=== PATIENT | female | born 1945 | race Hispanic/Latino ===

== ENCOUNTER 2018-01-20 06:03 | Observation (INO) | payer MEDICARE ==
--- NOTE | 2018-01-19 14:05 | Diagnostic Imaging Report ---
ADDENDUM #1 Preoperative, anesthesia protocol, knee surgery, left knee Signed by: Dr. Ralph Connor MD on 01/26/2018 1:10 PM ORIGINAL REPORT EXAM: XR CHEST 2 VIEWS DATE: 01/19/2018 1:30 PM INDICATION: Preoperative. Knee surgery. COMPARISON: None FINDINGS: Lines and Tubes: None Heart and Mediastinum: No acute cardiomediastinal findings. Mild aortic arch calcifications. Lungs and Pleura: No significant pleural effusion, pneumothorax, or focal consolidation. Bones and Soft Tissues: No acute findings. IMPRESSION: 1. No acute cardiopulmonary findings. Signed by: Dr. Ralph Connor MD on 01/19/2018 2:02 PM
[2018-01-19 14:17] LABS: BASOPHILS # (AUTO) 0.1 (0.0-0.1); BASOPHILS % 0.9 % (0.0-1.0); EOSINOPHILS # (AUTO) 0.1 (0.0-0.4); EOSINOPHILS % 1.9 % (0.0-6.0); HEMATOCRIT 36.1 % (34.2-44.1); LYMPHOCYTES # (AUTO) 1.9 (1.0-3.2); MEAN CORPUSCULAR HEMOGLOBIN 30.6 pg (28-32); MEAN CORPUSCULAR HGB CONC 33.2 g/dL (31-35); MEAN CORPUSCULAR VOLUME 92.1 fL (81-99); MONOCYTES # (AUTO) 0.4 (0.2-0.8); MONOCYTES % 6.3 % (4.4-11.3); NEUTROPHILS # (AUTO) 4.3 (2.1-6.9); NEUTROPHILS % 62.6 % (38.7-80.0); PLATELET COUNT 270 x10e3/uL (140-360); RED BLOOD COUNT 3.92 x10e6/uL (3.6-5.1); RED CELL DISTRIBUTION WIDTH 13.3 % (11.7-14.4)
[~2018-01-20] VITALS: Ht 154.9 cm; Wt 60.4 kg
[~2018-01-20 06:03] MED LIST: AMLODIPINE BESY10 MG PO; CARVEDILOL6.25 MG PO; FENOFIBRATE134 MG PO; MELOXICAM7.5 MG PO; PAROXETINE HCL10 MG PO; TRAZODONE HCL150 MG PO; ULTRAM 50MG50 MG PO
--- OUTSIDE RECORDS SUMMARY | 2018-01-20 06:06 | XMS REPORT ---
Author Author [facility] Address Unknown Phone Unavailable Care Team Providers Care Manager Secondary Name Role Phone ANJELICA HODGSON Unavailable Unavailable Problems This patient has no known problems. Allergies, Adverse Reactions, Alerts This patient has no known allergies or adverse reactions. Medications This patient has no known medications. Results Test Description Test Time Test Comments Text Results Atomic Results Result Comments CHEST 2 VIEWS 2018-01-19 14:00:00 [place] [address] Patient Name: ROWENA LOVELL MR #: [id number] : 1945 Age/Sex: 72/F Req #: [id number] Adm Physician: Ordered by: ANJELICA HODGSON MD Report #: [id number] Location: OR Room/Bed: Procedure: [id number] DX/CHEST 2 VIEWS Exam Date: 01/19/18 Exam Time: 1350 REPORT STATUS: Signed EXAM: XR CHEST 2 VIEWS DATE: 01/19/2018 1:30 PM IND ICATION: Preoperative. Knee surgery. COMPARISON: None FINDINGS: Lines and Tubes: None Heart and Mediastinum: No acute cardiomediastinal findings. Mild aortic arch calcifications. Lungs and Pleura: No significant pleural effusion, pneumothorax, or focal consolidation. Bones and Soft Tissues: No acute findings. IMPRESSION: 1. No acute cardiopulmonary findings. Signed by: Dr. Ralph Gotti MD on 01/19/2018 2:02 PM Dictated By: RALPH GOTTI MD 140 Transcribed By: YOHAN on 01/19/181401 COPY TO: ANJELICA HODGSON MD
[2018-01-20] MEDS ORDERED: DEXAMETHASONE SOD PHOS 10 MG/1 ML VIAL ONE (06:11)
[2018-01-20] MEDS ORDERED: CELECOXIB 200 MG CAP ONE (06:11)
[2018-01-20] MEDS ORDERED: GABAPENTIN 300 MG CAP ONE (06:11)
[2018-01-20] MEDS ORDERED: CEFAZOLIN SOD 2 GM/D5W 50ML 50 ML IV ONE (06:12)
[2018-01-20] MEDS ORDERED: BACITRACIN 50,000 UNIT VIAL ONE (06:20)
[2018-01-20] MEDS ORDERED: TRANEXAMIC ACID 1,000 MG/10 ML ML ONE (06:20)
[2018-01-20] MEDS ORDERED: ROPINIROLE HCL1 MG PO (06:52)
[2018-01-20] MEDS ORDERED: ROPIVACAINE 246.25 MG, EPINEPHRINE HCL 1:1000 0.5 MG, CLONIDINE HCL 0.08 MG, KETOROLAC ... INJ ONE ×5 (07:30)
[2018-01-20] MEDS ORDERED: HYDROCODONE/APAP 5MG-325MG TAB PO PRN (09:15)
[2018-01-20] MEDS ORDERED: ACETAMINOPHEN 650 MG SUPP PR PRN (09:15)
[2018-01-20] MEDS ORDERED: KETOROLAC TROMETHAMINE 30 MG/ML VIAL IV PRN (09:15)
[2018-01-20] MEDS ORDERED: ONDANSETRON HCL INJ 2 MG/ML VIAL IV PRN (09:15)
[2018-01-20] MEDS ORDERED: PROMETHAZINE HCL (IM) 25 MG/ML VIAL INJ PRN (09:15)
[2018-01-20] MEDS ORDERED: DOCUSATE SODIUM 100 MG CAP PO PRN (09:15)
[2018-01-20] MEDS ORDERED: DIPHENHYDRAMINE HCL INJ 50 MG/ML VIAL IM/IV PRN (09:15)
[2018-01-20] MEDS ORDERED: ZOLPIDEM TARTRATE 5 MG TAB PO PRN (09:15)
--- NOTE | 2018-01-20 09:55 | Diagnostic Imaging Report ---
PROCEDURE: X-RAY LEFT KNEE, ONE OR TWO VIEWS COMPARISON: None. INDICATIONS:S/P KNEE REPLACEMENT FINDINGS: Status post left total knee arthroplasty and patellar resurfacing with surrounding soft tissue swelling, air and virgen consistent with recent surgery. Hardware appears intact. No evidence of fracture or malalignment. CONCLUSION: Status post left total knee arthroplasty with expected post-operative findings. Dictated by: KEN CONNELLY M.D. on 01/20/2018 at 10:04 Electronically approved by: KEN CONNELLY M.D. on 01/20/2018 at 10:04
[2018-01-20] MEDS: ACETAMINOPHEN 1000 MG/100 ML IV SCH ×5 (12:27→19:28)
[2018-01-20] MEDS: SODIUM CHLORIDE 0.9% 1000ML 1,000 ML IV SCH ×2 (12:27→19:30)
[2018-01-20 12:40] VITALS: BP 142/65
[2018-01-20] MEDS: HYDROCODONE/APAP 7.5MG-325MG 1 EA TAB PO PRN (13:28)
[2018-01-20] MEDS ORDERED: CEFAZOLIN SOD 1 GM/D5W 50ML 50 ML IV SCH (14:00)
[2018-01-20 14:17] VITALS: BP 142/65
--- NOTE | 2018-01-20 14:33 | Operative Report ---
DATE OF PROCEDURE: January 20, 2018 PREOPERATIVE DIAGNOSIS: Osteoarthritis, left knee. POSTOPERATIVE DIAGNOSIS: Osteoarthritis, left knee. PROCEDURE: Left total knee arthroplasty. INDICATIONS: The patient is a 72-year-old lady with end-stage arthritis of her left knee. She has failed conservative management and would like to proceed with left total knee replacement. The risks and benefits of the procedure have been discussed. She states she understands and wishes to proceed. DESCRIPTION OF PROCEDURE: The patient was brought to the operating room and placed under general anesthetic. She received prophylactic antibiotics, regional block, and tranexamic acid in the holding area. Her left lower extremity was prepped and draped in a sterile manner. A preoperative timeout was performed. The extremity was exsanguinated and a proximal tourniquet was inflated to 300 mmHg. An anterior approach with a medial parapatellar arthrotomy was performed. Clear synovial fluid was removed from the joint. Soft tissue releases were performed to bring the knee up into flexion with the patella everted. The remnant of the cruciate ligaments was sacrificed. Meniscal remnants and marginal osteophytes were removed. A Watkins and Nephew posterior stabilized LEGION knee system was used throughout the case. An extramedullary cutting guide was used to resect the proximal tibia. The tibia was noted to be a size 2. The central fin punch was impacted. Attention was then directed towards the distal femur. An intramedullary cutting guide was used to resect the distal femur in 6 degrees of valgus and rotation referencing off of a combination of landmarks including Whitesides line, the epicondylar axis, and the posterior condyles. The femoral component was a size #4. The anterior and posterior cuts were made. Due to the small size of the distal femur, I did not elect to make a notch cut and used a posted tibial insert. We elected to use an ultracongruent tibial insert. Trial reductions were performed. An 11 mm ultracongruent tibial insert provided appropriate soft tissue balancing in both flexion and extension. The patella was resurfaced with a 29 mm x 9 mm patellar button. The thickness was checked before and after and was right at 22 mm. Patellar tracking was concentric. The trial implants were then all removed. A 100 mL premixed pericapsular injection was placed into the surrounding soft tissue. The knee was thoroughly irrigated with a shower-tip pulsatile lavage. The components were cemented into place using a single mix of Palacos cement pre-loaded with antibiotics. Care was taken to remove all extravasated cement. The wound was further irrigated while the cement cured. The arthrotomy was then closed with interrupted #1 Ethibond. The knee was put through flexion and extension to ensure a secure closure. The skin was closed with subcuticular Vicryl and virgen. A sterile Mastisol bandage was applied. The patient was extubated and transported to the recovery room in stable condition. Blood loss was minimal. All needle and sponge counts were correct. Job#: [id number] VAS
[2018-01-20] MEDS: CEFAZOLIN SOD 1 GM VIAL IV SCH ×2 (14:41→21:26)
[2018-01-20 16:31] VITALS: BP 142/65
[2018-01-20 16:45] VITALS: BP 128/63
[2018-01-20] MEDS ORDERED: CELECOXIB 100 MG CAP PO SCH (17:00)
[2018-01-20] MEDS: ASPIRIN 325 MG TAB PO SCH (17:13)
[2018-01-20] MEDS: CELECOXIB 200 MG CAP PO SCH (17:13)
[2018-01-20] MEDS ORDERED: ONDANSETRON HCL INJ 2 MG/ML VIAL ONE (18:06)
[2018-01-20] MEDS ORDERED: ACETAMINOPHEN 1000 MG/100 ML IV ONE (18:06)
[2018-01-20] MEDS ORDERED: LIDOCAINE HCL 2% LOCAL INJ 5 ML SDV VIAL INJ ONE (18:06)
[2018-01-20] MEDS ORDERED: PROPOFOL IV EMULSION 10 MG/ML 20 ML VIAL ONE (18:06)
[2018-01-20] MEDS ORDERED: DEXAMETHASONE SOD PHOS INJ 4 MG/ML VIAL ONE (18:06)
[2018-01-20] MEDS ORDERED: SEVOFLURANE INHAL SOLN 250 ML PEN BTL ONE (18:06)
[2018-01-20] MEDS ORDERED: MIDAZOLAM HCL 2 MG/2 ML VIAL ONE (19:06)
[2018-01-20] MEDS ORDERED: FENTANYL CITRATE/PF 100MCG/2 ML INJ ONE (19:06)
[2018-01-20] MEDS ORDERED: LIDOCAINE 2% /EPINEPHRINE 20 ML SDV INJ ONE (19:13)
[2018-01-20] MEDS ORDERED: ROPIVACAINE 0.5% 5 MG/ML 30 ML SDV ONE (19:13)
[2018-01-20 20:00] VITALS: BP 143/93
[2018-01-20 22:40] VITALS: BP 143/93
[2018-01-21] VITALS: BP 147/71
[2018-01-21] MEDS: HYDROCODONE/APAP 7.5MG-325MG 1 EA TAB PO PRN (03:54)
[2018-01-21 04:00] VITALS: BP 138/62
[2018-01-21] MEDS: SODIUM CHLORIDE 0.9% 1000ML 1,000 ML IV SCH (05:08)
[2018-01-21] MEDS: CEFAZOLIN SOD 1 GM VIAL IV SCH (05:51)
[2018-01-21] MEDS: ACETAMINOPHEN 1000 MG/100 ML IV SCH (05:51)
[2018-01-21 06:21] LABS: HEMATOCRIT 27.6 % (34.2-44.1); HEMOGLOBIN 9.3 g/dL (12.0-16.0)
[2018-01-21 08:07] VITALS: BP 136/61
[2018-01-21] MEDS: ASPIRIN 325 MG TAB PO SCH (08:09)
[2018-01-21] MEDS: CELECOXIB 200 MG CAP PO SCH (08:09)
[2018-01-21 08:40] VITALS: BP 136/61
[2018-01-21] MEDS ORDERED: ASPIRIN325 MG PO (08:53)
[2018-01-21] MEDS ORDERED: ACETAMINOPHEN 1000 MG/100 ML IV PRN (09:15)
[2018-01-21] MEDS ORDERED: NORCO 5-325 TA1 EACH PO (09:37)
[2018-01-21 12:07] VITALS: BP 150/65
--- NOTE | 2018-03-09 14:50 | Discharge Summary ---
CHIEF COMPLAINT: Left knee pain. HISTORY OF PRESENT ILLNESS: This patient is a 72-year-old female who is well known to us who complains of left knee pain for roughly 3 years. She has seen us multiple times over the last few years and had numerous cortisone injections as well as viscosupplementation. The patient now presents wanting to proceed with a left total knee replacement. The risks and benefits were explained. The patient states she understands and wishes to proceed. HOSPITAL COURSE: The patient underwent a left total knee replacement without complications. She was then transferred to the recovery room in the floor in stable condition. She remained stable throughout her hospital stay. She progressed nicely with physical therapy. She was able to be discharged home on postop day 1. PRINCIPAL DIAGNOSIS: Osteoarthritis, left knee. PRINCIPAL PROCEDURE: Left TKA. DISCHARGE INSTRUCTIONS: The patient was discharged home with home health and physical therapy arranged. She was to be weightbearing as tolerated with a rolling walker. She was to resume her home medications as directed. She was instructed to take aspirin twice a day for thromboprophylaxis. She was to return to our office in roughly 10 days. DICTATED BY: Rolando Montero PA-C ANJELICA HODGSON MD Job#: [id number] TAMI
--- NOTE | 2018-03-28 12:09 | Consultation ---
DATE OF CONSULTATION: January 21, 2018 REASON FOR CONSULTATION: Postop medical management. HISTORY OF PRESENT ILLNESS: Patient is a 72-year-old lady status post total knee arthroplasty of the left knee, who is doing well postoperatively with good pain control. REVIEW OF SYSTEMS: Denies any chest pain, fever, chills, headaches, nausea, vomiting, shortness of breath, or dizziness on review of systems. PAST MEDICAL HISTORY: Significant for hyperlipidemia, hypertension. MEDICATIONS: See MAR. ALLERGIES: NONE. SOCIAL HISTORY: Nonsmoker, nondrinker. FAMILY HISTORY: Noncontributory. PHYSICAL EXAMINATION VITAL SIGNS: Temperature 96.2, pulse 64, blood pressure 143/93, sats 99%. GENERAL: No apparent distress. LUNGS: Clear to auscultation bilaterally. NECK: Supple. CARDIOVASCULAR: Regular rate and rhythm. ABDOMEN: Good bowel sounds. Soft, nontender. EXTREMITIES: No clubbing or cyanosis. NEUROLOGICAL: Nonfocal. ASSESSMENT AND PLAN 1. Knee pain. We will continue with physical therapy. 2. Anemia. We will check a CBC. 3. Hyperlipidemia. Continue with current care and monitoring. 4. Hypertension. We will continue with current care and monitoring. Please see hospital chart for full details. Job#: [id number] LPA
== END 2018-01-21 14:35 | disposition home health service (06) ==
LOC: OR 06:03 → PACU V 09:10 → MED/SURG 10:29
PROVIDERS: ADMIT Specialist; ATTEND Specialist
DX: M17.12 Unilateral primary osteoarthritis, left knee (principal); E78.5 Hyperlipidemia, unspecified; F32.9 Major depressive disorder, single episode, unspecified; F41.9 Anxiety disorder, unspecified; Z79.899 Other long term (current) drug therapy; I11.9 Hypertensive heart disease without heart failure; D64.9 Anemia, unspecified; Z01.810 Encounter for preprocedural cardiovascular examination; Z01.812 Encounter for preprocedural laboratory examination; Z01.811 Encounter for preprocedural respiratory examination
CPT/HCPCS: 27447; 36415 ×2; 71046; 73560; 85014; 85018; 85025; 86850; 86900; 86920; 93005; 97110; 97116 ×2; 97162; C1713; G0378 ×2; J0171; J0690 ×2; J1100 ×2; J1885; J2001 ×2; J2250; J2405; J2795; J7030

== ENCOUNTER 2018-04-28 06:24 | Observation (INO) | payer MEDICARE ==
--- NOTE | 2018-04-27 12:45 | Diagnostic Imaging Report ---
EXAMINATION: PA and lateral views of the chest. COMPARISON: 01/19/2018 CLINICAL HISTORY: Preoperative examination for right knee surgery DISCUSSION: Lungs are well-inflated and without focal consolidation, pleural effusion, or pneumothorax. Tortuous thoracic aorta with atherosclerotic calcification. Normal heart size. No pulmonary edema. No acute osseous abnormality. Surgical clips project over the right upper quadrant, compatible with prior cholecystectomy. IMPRESSION: No acute cardiopulmonary abnormalities. Signed by: Dr. Jaylon Bird M.D. on 04/27/2018 12:41 PM
[~2018-04-28] VITALS: Ht 152.4 cm; Wt 63.2 kg
[~2018-04-28 06:24] MED LIST changes: +ASPIRIN325 MG PO; +BENICAR20 MG PO; +LEVOTHYROXINE50 MCG PO; +NORCO 5-325 TA1 EACH PO; +PREMARIN0.625 MG PO; +RESTORIL15 MG PO; +ROPINIROLE HCL1 MG PO; +TEMAZEPAM15 MG; +VITAMIN D31000 UNIT
--- OUTSIDE RECORDS SUMMARY | 2018-04-28 06:26 | XMS REPORT | Summary of Care ---
Author Author [facility] [place] Organization [facility] [place] Address Unknown Phone Unavailable Encounter HQ Encntr_art(FIN) [id number] Date(s): 12/13/14 - 12/13/14 [facility] [place] [address] [place], [place] [address] [phone] Discharge Disposition: Home Attending Physician: Jan Bland MD Vital Signs No data available for this section Problem List No data available for this section Allergies, Adverse Reactions, Alerts No data available for this section Medications No data available for this section Results No data available for this section Immunizations No data available for this section Procedures No data available for this section Social History No data available for this section Assessment and Plan No data available for this section
--- OUTSIDE RECORDS SUMMARY | 2018-04-28 06:26 | XMS REPORT | Summary of Care ---
Author Author [facility] [address] Organization [facility] [address] Address Unknown Phone Unavailable Encounter HQ Encntr_art(FIN) [id number] Date(s): 04/23/16 - 04/23/16 [facility] - [address] [place] [phone] Discharge Disposition: Home or Self Care Attending Physician: Jan Bland MD Vital Signs [...]
--- OUTSIDE RECORDS SUMMARY | 2018-04-28 06:26 | XMS REPORT | Summary of Care ---
Author Organization Unknown Address Unknown Phone Unavailable Encounter HQ Encntr_art(ARUNA) [id number] Date(s): 11/10/13 - 11/10/13 [facility] Outpatient Imaging - [address] [address] [place] Discharge Disposition: Home Physician Attending: Jan Bland MD Reason for Visit V76.12 - SCREEN MAMMOGRA Problem List No data available for this section Allergies, Adverse Reactions, Alerts No data available for this section Medications No data available for this section Medications Administered During Your Visit No data available for this section Immunizations No data available for this section
--- OUTSIDE RECORDS SUMMARY | 2018-04-28 06:26 | XMS REPORT | Summary of Care ---
Author Author [facility] - [place] Organization [facility] [place] Address Unknown Phone Unavailable Encounter HQ Encntr_art(FIN) [id number] Date(s): 12/22/15 - 12/22/15 [facility] Outpatient Imaging - [place] [address] [place] [phone] Discharge Disposition: Home or Self Care Attending [...]
--- OUTSIDE RECORDS SUMMARY | 2018-04-28 06:26 | XMS REPORT | Summary of Care ---
Author Author [facility] - [place] Organization [facility] [place] Address Unknown Phone Unavailable Encounter HQ Encntr_art(FIN) [id number] Date(s): 12/24/16 - 12/24/16 [facility] Outpatient [facility] - [place] [address] [place] [phone] Discharge Disposition: Home or Self Care Attending [...]
--- OUTSIDE RECORDS SUMMARY | 2018-04-28 06:26 | XMS REPORT | Summary of Care ---
Author Author [facility] - [place] Organization [facility] [place] Address Unknown Phone Unavailable Encounter HQ Encntr_art(FIN) [id number] Date(s): 05/10/15 - 05/10/15 [facility] - [place] [address] [place], [place] [address] [phone] Discharge Disposition: Home Attending Physician: Jan Bland [...]
--- OUTSIDE RECORDS SUMMARY | 2018-04-28 06:26 | XMS REPORT | Summary of Care ---
Author Author [facility] - [place] Organization [facility] [place] Address Unknown Phone Unavailable Encounter HQ Encntr_art(FIN) [id number] Date(s): 10/18/16 - 10/18/16 [facility] Out[facility] - [place] [address] [place] [phone] Discharge Disposition: Home or Self Care Attending [...]
--- OUTSIDE RECORDS SUMMARY | 2018-04-28 06:26 | XMS REPORT | Summary of Care ---
Author Organization Unknown Address Unknown Phone Unavailable Encounter HQ Encntr_art(ARUNA) [id number] Date(s): 04/25/14 - 04/25/14 [facility] Outpatient Imaging - [address] [address] [place] Discharge Disposition: Home Physician Attending: Jan Bland MD Reason for Visit V70.0 - ROUTINE MEDICAL Problem List No data available for this section Allergies, Adverse Reactions, Alerts No data available for this section Medications No data available for this section Medications Administered During Your Visit No data available for this section Immunizations No data available for this section
--- OUTSIDE RECORDS SUMMARY | 2018-04-28 06:26 | XMS REPORT | Continuity of Care Document ---
Author Author [facility] Interface Address Unknown Phone Unavailable Problems Problem Status Onset Date Classification Date Reported Comments Source V76.12 - SCREEN MAMMOGRA Active 12/01/2014 [facility] 401.0 - MALIGNANT HYPER Active 04/15/2013 [facility] [place] SCREENING Active 10/24/2011 [facility] Medications Medication Details Route Status Patient Instructions Ordering Provider Order Date Source Allergies, Adverse Reactions, Alerts Substance Category Reaction Severity Reaction type Status Date Reported Comments Source Immunizations Immunization Date Given Site Status Last Updated Comments Source Results Order Name Results Value Reference Range Date Interpretation Comments Source Chest 2 views DX Chest 2 views DX EXAM: Chest 2 views DX HISTORY: - Z00.00 Encounter for general adult medical examination without abnormal findings COMPARISON: 04/23/2016 The heart size is normal. The lungs are clear. There is no pleural effusion or pneumothorax. No acute skeletal abnormality. IMPRESSION: No acute abnormality. 04/16/2018 - - Read by: Georges Vasquez MD Dictated Date/time: 04/16/18 15:20 Electronically Signed by: Georges Vasquez MD 04/16/18 15:20 FINAL REPORT SCOTT Hernandez Breast Mammo Scrn MANINDER incl CAD MA Breast Mammo Scrn MANINDER incl CAD MA - BREAST MAMMO SCRN MANINDER INCL CAD MA BILATERAL DIGITAL SCREENING MAMMOGRAM WITH CAD: 12/24/2016 CLINICAL: Routine/Screening. Current study was evaluated with a Computer Aided Detection (CAD) system. Comparison is made to exams dated: 12/22/2015 mammogram, 12/13/2014 mammogram, 11/10/2013 mammogram, 11/05/2012 mammogram - [facility], 11/05/2011 mammogram and 10/09/2010 mammogram - [facility]. There are scattered fibroglandular densities in both breasts. Multiple right breast small oval masses are stable. There are benign calcifications in both breasts. No significant masses, calcifications, or other findings are seen in either breast. There has been no significant interval change. IMPRESSION: BENIGN There is no mammographic evidence of malignancy. A 1 year screening mammogram is recommended. Professional services are provided by the [facility] Diagnostic Imaging. Kem Moreno M.D., cm/colin:12/25/2016 09:29:10 Survey Methodologist: Jojo URIBE)(Romaine), [facility] This exam was dictated and interpreted by [id number] for BREE Hernandez. letter sent: Normal exam Mammogram BI-RADS: 2 Benign 12/24/2016 - - Read by: Emmett Barger MD Dictated Date/time: 12/25/16 09:29 Electronically Signed by: Emmett Barger MD 12/25/16 09:29 FINAL REPORT BREE Hernandez Bone Density DXA Dual Energy MA Bone Density DXA Dual Energy MA - Bone Density DXA Dual Energy MA BONE DENSITY EVALUATION: 10/18/2016 CLINICAL DATA: Post menopausal. FINDINGS: Bone density evaluation was performed 10/18/2016 on the AP L1-L4 region of spine using a Hologic unit. The BMD average for the exam is 0.999 g/cm2. The T-score is -0.40 and the Z-score is 1.70. This matches the World Health Organization's criteria for normal bone density and places the patient within normal limits of fracture risk. An additional bone density evaluation was performed 10/18/2016 on the right femur neck using a Hologic unit. The BMD average for the exam is 0.875 g/cm2. The T-score is 0.20 and the Z-score is 1.80. This matches the World Health Organization's criteria for normal bone density and places the patient within normal limits of fracture risk. An additional bone density evaluation was performed 10/18/2016 on the right hip using a Hologic unit. The BMD average for the exam is 0.881 g/cm2. The T-score is -0.50 and the Z-score is 0.90. This matches the World Health Organization's criteria for normal bone density and places the patient within normal limits of fracture risk. An additional bone density evaluation was performed 10/18/2016 on the left femur neck using a Hologic unit. The BMD average for the exam is 0.852 g/cm2. The Z- score is 1.60. This matches the World Health Organization's criteria for normal bone density and places the patient within normal limits of fracture risk. An additional bone density evaluation was performed 10/18/2016 on the left hip using a Hologic unit. The BMD average for the exam is 0.913 g/cm2. The T-score is -0.20 and the Z-score is 1.20. This matches the World Health Organization's criteria for normal bone density and places the patient within normal limits of fracture risk. IMPRESSION: BONE DENSITY WITHIN NORMAL LIMITS Patient is at normal risk for fracture. Professional services are provided by the [facility] Diagnostic Imaging. This exam was dictated and interpreted by [id number] for CHARBEL Berry M.D. cm/penrad:10/18/2016 16:02:04 Survey Methodologist: Jojo WOLFF (R)), [facility] 10/18/2016 - - Read by: Emmett Barger MD Dictated Date/time: 10/18/16 16:02 Electronically Signed by: Emmett Barger MD 10/18/16 16:02 FINAL REPORT SCOTT Hernandez Chest 2 views DX Chest 2 views DX EXAM: Chest 2 views DX HISTORY: Z00.00 Encounter for general adult medical examination without abnormal findings COMPARISON: 05/10/2015 The heart size is normal and the lungs are clear. There is no pleural effusion or pneumothorax. Mild spine degenerative change. IMPRESSION: No acute abnormality. 04/23/2016 - - Read by: Georges Vasquez MD Dictated Date/time: 04/23/16 15:08 Electronically Signed by: Georges Vasquez MD 04/23/16 15:09 FINAL REPORT SCOTT Hernandez Digital Mammo Screening Maninder MA Digital Mammo Screening Maninder MA - DIGITAL MAMMO SCREENING MANINDER MA BILATERAL DIGITAL SCREENING MAMMOGRAM WITH CAD: 12/22/2015 CLINICAL: Routine. Current study was evaluated with a Computer Aided Detection (CAD) system. Comparison is made to exams dated: 12/13/2014 mammogram, 11/10/2013 mammogram, 11/05/2012 mammogram - [facility], 11/05/2011 mammogram, 10/09/2010 mammogram - [facility] and 06/05/2004. There are scattered fibroglandular densities in both breasts. There are benign bilateral vascular calcifications. No significant masses, calcifications, or other findings are seen in either breast. IMPRESSION: BENIGN There is no mammographic evidence of malignancy. A 1 year screening mammogram is recommended. Eri Cavanaugh M.D. rn/:12/26/2015 11:13:54 Survey Methodologist: Rossy MORGAN(R)(M), [facility] This exam was dictated and interpreted by [id number] for BREE Márquez. letter sent: Bilateral Benign Mammogram BI-RADS: 2 Benign 12/22/2015 - - Read by: Eri Cavanaugh MD Dictated Date/time: 12/26/15 11:13 Electronically Signed by: Eri Cavanaugh MD 12/26/15 11:13 FINAL REPORT SCOTT Hernandez Chest 2 views DX Chest 2 views DX CHEST PA AND LATERAL History: 59-year-old female physical exam. Comparison: 04/25/2014 Findings: The lungs are expanded and no infiltrate, mass or pleural effusion seen. Cardiomediastinal structures are within normal limits. Atherosclerotic calcifications of the aortic arch seen. Also mild osteoarthritis throughout the spine and shoulders seen. Status post cholecystectomy. IMPRESSION: There is no active cardio pulmonary abnormality. 05/10/2015 - - Read by: Carlos Pace MD Dictated Date/time: 05/10/15 15:06 Electronically Signed by: Carlos Pace 05/10/15 15:08 FINAL REPORT SCOTT Hernandez Digital Mammo Screening Maninder MA Digital Mammo Screening Maninder MA - DIGITAL MAMMO SCREENING MANINDER MA BILATERAL DIGITAL SCREENING MAMMOGRAM WITH CAD: 12/13/2014 CLINICAL: Routine. Current study was evaluated with a Computer Aided Detection (CAD) system. Comparison is made to exams dated: 10/09/2010 mammogram, 11/05/2011 mammogram - [facility], 11/05/2012 mammogram, 11/10/2013 mammogram - [facility] and 10/24/2010 ultrasound - [facility]. There are scattered fibroglandular densities in both breasts. No significant masses, calcifications, or other findings are seen in either breast. There has been no significant interval change. IMPRESSION: BENIGN There is no mammographic evidence of malignancy. A 1 year screening mammogram is recommended. Jozef Amanda M.D. [facility]/penrad:12/14/2014 07:20:40 Survey Methodologist: Jojo Chong RT(R)(M), [facility] This exam was dictated and interpreted by [id number] for BREE Márquez. letter sent: Normal exam Mammogram BI-RADS: 2 Benign 12/13/2014 - - Read by: Jozef Amanda MD Dictated Date/time: 12/14/14 07:20 Electronically Signed by: Jozef Amanda MD 12/14/14 07:20 FINAL REPORT BREE Hernandez Chest 2 views Chest 2 views Chest x-ray 2 views INDICATION: Routine exam COMPARISON: 04/15/2013 FINDINGS: Heart size and central vasculature are within normal limits. There is no effusion or focal pneumonia. No pneumothorax. No acute osseous pathology. IMPRESSION: No acute cardiopulmonary process. Stable exam. 04/25/2014 - - Read by: Maria Teresa Bajwa MD Dictated Date/time: 04/25/14 15:13 Electronically Signed by: Maria Teresa Bajwa MD 04/25/14 15:14 FINAL REPORT BREE SCOTT Hernandez Digital Mammo Screening Maninder MA Digital Mammo Screening Maninder MA - DIGITAL MAMMO SCREENING MANINDER MA BILATERAL DIGITAL SCREENING MAMMOGRAM WITH CAD: 11/10/2013 CLINICAL: Routine. Current study was evaluated with a Computer Aided Detection (CAD) system. Comparison is made to exams dated: 11/05/2012 mammogram - [facility], 11/05/2011 mammogram, 10/09/2010 mammogram - [facility] and 06/05/2004. There are scattered fibroglandular densities in both breasts. No significant masses, calcifications, or other findings are seen in either breast. There has been no significant interval change. IMPRESSION: NEGATIVE There is no mammographic evidence of malignancy. A screening mammogram in one year is recommended. Dr. Sarah Porter D.O. /penrad:11/10/2013 16:50:02 Survey Methodologist: Sherri Alfonso RT(R)(M), [facility] This exam was dictated and interpreted by [id number] for BREE Hernandez. letter sent: Normal exam Mammogram BI-RADS: 1 Negative 11/10/2013 - - Read by: Sarah Porter DO Dictated Date/time: 11/10/13 16:50 Electronically Signed by: Sarah Porter DO 11/10/13 16:50 FINAL REPORT BREE Hernandez Chest 2 views Chest 2 views Two view chest. INDICATION: Malignant essential hypertension. COMPARISON: August 06, 2012. FINDINGS: Midline trachea. Cardiac silhouette within normal limits. Aortic arch calcific atherosclerosis. Symmetric melba. No pneumothorax, lobar consolidation, or pleural effusion. Osseous structures are unremarkable. Right upper quadrant abdominal surgical clips. IMPRESSION: No acute cardiopulmonary process 04/15/2013 - - Read by: Jozef Amanda Dictated Date/time: 04/15/13 10:36 Electronically Signed by: Jozef Amanda MD 04/15/13 10:39 FINAL REPORT BREE Hernandez Digital Mammo Screening Maninder MA Digital Mammo Screening Maninder MA - DIGITAL MAMMO SCREENING MANINDER MA BILATERAL DIGITAL SCREENING MAMMOGRAM WITH CAD: 11/05/2012 CLINICAL: Routine. Current study was evaluated with a Computer Aided Detection (CAD) system. Comparison is made to exams dated: 05/03/2002 mammogram, 06/05/2004 and 10/09/2010 mammogram - [facility]. There are scattered fibroglandular elements in both breasts that could obscure a lesion on mammography. There are similar-appearing, masses in both breasts, and more than one has changed in size. This is a benign interval finding, and they will be classified as BIRADS 2. Note that diagnostic imaging remains indicated for any palpable area of concern. No significant masses, calcifications, or other findings are seen in either breast. There has been no significant interval change. IMPRESSION: BENIGN There is no mammographic evidence of malignancy. A screening mammogram in one year is recommended. Dr. Bart delgado/penrad:11/06/2012 09:33:03 Survey Methodologist: Tiny MORGAN(R)(M), [facility] letter sent: Normal exam Mammogram BI-RADS: 2 Benign 11/05/2012 - - Read by: Bart Domingo Dictated Date/time: 11/06/12 09:33 Electronically Signed by: Bart Domingo MD 11/06/12 09:33 FINAL REPORT [facility] Chest 2 views Chest 2 views CHEST 2 VIEWS, 08/06/2012 HISTORY: Hypertension. No prior exams available for comparison. The heart is borderline enlarged with a cardiothoracic ratio of 12.9/25.5. Mildly narrow AP diameter of the chest. The thoracic aorta does not look dilated. The lungs are free of active disease. Mild degenerative changes in the thoracic spine. CONCLUSION: Borderline cardiomegaly . 08/06/2012 - - Read by: Chaparro Baez Dictated Date/time: 08/06/12 16:13 Electronically Signed by: Chaparro Baez MD 08/06/12 16:16 FINAL REPORT [facility] [place] Vital Signs Vital Sign Value Date Comments Source Encounters Location Location Details Encounter Type Encounter Number Reason For Visit Attending Provider ADM Date DC Date Status Source [facility] Outpatient [id number] SCREENING BHARATI ROSSEL 11/05/2011 Active [facility] OD [id number] 401.0 - MALIGNANT HYPER JAN BLAND 04/15/2013 04/15/2013 Active [facility] [place] [place] [facility] [id number] Jan Bland 11/10/2013 11/11/2013 [facility] [place] [place] [facility] [id number] Jan Bland 04/25/2014 04/26/2014 [facility] [place] [place] [facility] [id number] Jan Bland 12/13/2014 12/14/2014 [facility] [place] [place] [facility] [id number] Jan Bland 05/10/2015 05/11/2015 [facility] [place] [place] [facility] [id number] Jan Bland 12/22/2015 12/23/2015 [facility] [place] [facility] [place] [facility] [id number] Jan Bland 04/23/2016 04/24/2016 [facility] [place] [place] [facility] [id number] Jan Bland 10/18/2016 10/19/2016 SCOTT Hernandez [facility] [place] [facility] [id number] Jan Bland 12/24/2016 12/25/2016 SCOTT Hernandez Procedures Procedure Code Date Perfomer Comments Source
[2018-04-28] MEDS ORDERED: DEXAMETHASONE SOD PHOS 10 MG/1 ML VIAL ONE (06:39)
[2018-04-28] MEDS ORDERED: CELECOXIB 200 MG CAP ONE (06:39)
[2018-04-28] MEDS ORDERED: GABAPENTIN 300 MG CAP ONE (06:39)
[2018-04-28] MEDS ORDERED: CEFAZOLIN SOD 2 GM/D5W 50ML 50 ML IV ONE (06:42)
[2018-04-28] MEDS ORDERED: BACITRACIN 50,000 UNIT VIAL ONE (06:54)
[2018-04-28] MEDS ORDERED: SODIUM CHLORIDE 0.9% 500ML 500 ML ONE (06:54)
[2018-04-28] MEDS ORDERED: VANCOMYCIN HCL 1 GM VIAL ONE (06:54)
[2018-04-28] MEDS ORDERED: TRANEXAMIC ACID 1,000 MG/10 ML ML ONE (06:54)
[2018-04-28 07:16] LABS: BASOPHILS # (AUTO) 0.1 (0.0-0.1); BASOPHILS % 1.4 % (0.0-1.0); EOSINOPHILS # (AUTO) 0.3 (0.0-0.4); EOSINOPHILS % 4.8 % (0.0-6.0); HEMATOCRIT 35.5 % (34.2-44.1); HEMOGLOBIN 11.5 g/dL (12.0-16.0); LYMPHOCYTES # (AUTO) 2.3 (1.0-3.2); LYMPHOCYTES % 39.1 % (18.0-39.1); MEAN CORPUSCULAR HEMOGLOBIN 30.3 pg (28-32); MEAN CORPUSCULAR HGB CONC 32.4 g/dL (31-35); MEAN CORPUSCULAR VOLUME 93.4 fL (81-99); MONOCYTES # (AUTO) 0.5 (0.2-0.8); MONOCYTES % 8.2 % (4.4-11.3); NEUTROPHILS # (AUTO) 2.7 (2.1-6.9); NEUTROPHILS % 46.2 % (38.7-80.0); PLATELET COUNT 226 x10e3/uL (140-360); RED CELL DISTRIBUTION WIDTH 13.3 % (11.7-14.4)
[2018-04-28] MEDS ORDERED: ROPIVACAINE 246.25 MG, EPINEPHRINE HCL 1:1000 1ML 0.5 MG, CLONIDINE HCL 0.08 MG, KETORO... INJ ONE ×5 (07:30)
[2018-04-28] MEDS ORDERED: PROMETHAZINE HCL (IM) 25 MG/ML VIAL IM PRN (09:00)
[2018-04-28] MEDS ORDERED: CELECOXIB 100 MG CAP PO SCH (09:00)
[2018-04-28] MEDS ORDERED: HYDROCODONE/APAP 5MG-325MG TAB PO PRN (09:00)
[2018-04-28] MEDS ORDERED: ONDANSETRON HCL INJ 2MG/ML 2ML 2 MG/ML VIAL IV PRN (09:00)
[2018-04-28] MEDS ORDERED: KETOROLAC TROMETHAMINE 30 MG/ML VIAL IV PRN (09:00)
[2018-04-28] MEDS ORDERED: DIPHENHYDRAMINE HCL INJ 50 MG/ML VIAL IM/IV PRN (09:00)
[2018-04-28] MEDS ORDERED: DOCUSATE SODIUM 100 MG CAP PO PRN (09:00)
[2018-04-28] MEDS ORDERED: ACETAMINOPHEN 650 MG SUPP PR PRN (09:00)
[2018-04-28] MEDS ORDERED: HYDROCODONE/APAP 7.5MG-325MG 1 EA TAB PO PRN (09:00)
--- NOTE | 2018-04-28 09:49 | Diagnostic Imaging Report ---
Right knee radiographs- 2 views. History: Status post right knee replacement. Findings: Status post total right knee arthroplasty with prosthetic components in anatomic alignment. Overlying subcutaneous emphysema and surgical skin virgen are present. IMPRESSION: Status post right total knee replacement in anatomic position. Signed by: Dr. Manny Coffey MD on 04/28/2018 9:45 AM
[2018-04-28] MEDS ORDERED: FENTANYL CITRATE/PF 100MCG/2 ML INJ ONE ×2 (10:31→18:34)
--- NOTE | 2018-04-28 12:05 | NUR ---
Recvd patient from PACU , AAOx3, Right knee surgery site bandage dressing is intact, on foot pump, on IV fluids, rating pain 3/10 on rt knee, not in any distress, call light in reach, bed alarm ON
[2018-04-28] MEDS: ASPIRIN 325 MG TAB PO SCH ×2 (12:20→17:39)
[2018-04-28] MEDS: SODIUM CHLORIDE 0.9% 1000ML 1,000 ML IV SCH (12:20)
[2018-04-28] MEDS: ACETAMINOPHEN 1000 MG/100 ML IV SCH ×2 (12:50→17:39)
[2018-04-28] MEDS: CELECOXIB 200 MG CAP PO SCH ×2 (13:00→17:39)
[2018-04-28 13:10] VITALS: BP 125/58
[2018-04-28 13:15] VITALS: BP 116/61
--- NOTE | 2018-04-28 13:37 | Operative Report ---
DATE OF PROCEDURE: April 28, 2018 CARDROOM HAND: Rolando Montero PA-C The patient was brought to the operating room for induction of anesthesia. Throughout this case, my PA's assistance was necessary for retraction of soft tissue and positioning of the extremity. This allows for efficient and technically successful execution of the operation and is considered medically necessary. PREOPERATIVE DIAGNOSIS: Osteoarthritis right knee. POSTOPERATIVE DIAGNOSIS: Osteoarthritis right knee. PROCEDURE: Right total knee replacement. INDICATIONS: The patient is a 72-year-old lady with end-stage arthritis of her right knee. She has failed conservative management and would like to proceed with a right total knee replacement. She had her left knee replaced three months ago. She is happy with her progress and wants to have the right side done. She understands the associated risks and benefits. DESCRIPTION OF PROCEDURE: The patient was brought to the operating room and placed under general anesthetic. She received a regional block, tranexamic acid and prophylactic antibiotics in the holding area. Her right lower extremity was prepped and draped in a sterile manner. A preoperative time out was performed. The extremity was exsanguinated, and a proximal tourniquet was inflated to 300 mmHg. An anterior approach with a medial parapatellar arthrotomy was performed. A large amount of clear synovial fluid was removed from the joint. Soft-tissue releases were performed to bring the knee up into flexion with the patella everted. The cruciate ligaments were sacrificed. A [employer] posterior stabilized knee system was used throughout the case. Marginal osteophytes and meniscal remnants were removed. An extramedullary cutting guide was used to resect the proximal tibia. As with the left knee, the tibial baseplate was a size number 2. The central fin punch was impacted, and attention was directed towards the distal femur. An intramedullary cutting guide was used to resect the distal femur in 6 degrees of valgus and external rotation referencing off of the posterior condyles, the epicondylar axis and [place]'s line. The femoral component was a size number 4. The anterior and posterior cuts were made. A trial reduction was performed. A 9 mm ultracongruent tibial insert provided appropriate soft-tissue balancing in full extension and 90 degrees of flexion. The patella was resurfaced with a 29 mm x 9 mm patellar button. The thickness was checked before and after and was right at 21 mm. Patellar tracking was noted to be concentric. The trial implants were then all removed. A 100 mL premixed pericapsular MARVIN injection was placed into the surrounding soft tissue. The knee was thoroughly irrigated with a shower-tip pulsatile lavage. The components were cemented into place using a single mix of high-viscosity Simplex cement pre-loaded with antibiotics. Care was taken to remove extravasated cement. The wound was further irrigated while the cement cured. The arthrotomy was then closed with interrupted number 1 Ethibond. The knee was put through flexion and extension after each suture to ensure a secure closure. The skin was closed with subcuticular Vicryl and virgen. She was placed into a sterile bandage. She was extubated and transported to the recovery room in stable condition. Blood loss was minimal. All needle and sponge counts were correct. Job#: [id number] EV
--- NOTE | 2018-04-28 14:05 | NUR ---
Visit made by the Spiritual Care Department Pastoral Visitor, Brenda Magallon. PV provided pastoral presence, prayer, hospitality, and supportive listening. Pastoral Visitor informed pt/family of the scope of [employer] and availability. DEN HERNANDEZ Release Specialist Spiritual Care Department O: [phone] Pager: [phone] ([phone] number calling from)
--- NOTE | 2018-04-28 14:15 | NUR ---
patient is in CPM machine , daughter at bed side, call light in reach
[2018-04-28] MEDS: CEFAZOLIN SOD 1 GM/NS 50ML 50 ML IV SCH ×2 (14:32→21:43)
[2018-04-28 16:17] VITALS: BP 128/59
[2018-04-28] MEDS ORDERED: EPHEDRINE SULFATE INJ 50 MG/10 ML SYR ONE (17:41)
[2018-04-28] MEDS ORDERED: LIDOCAINE HCL 2% LOCAL INJ 5 ML SDV VIAL INJ ONE (17:41)
[2018-04-28] MEDS ORDERED: ONDANSETRON HCL INJ 2MG/ML 2ML 2 MG/ML VIAL ONE (17:41)
[2018-04-28] MEDS ORDERED: PROPOFOL IV EMULSION 10 MG/ML 20 ML VIAL ONE (17:41)
[2018-04-28] MEDS ORDERED: SEVOFLURANE INHAL SOLN 250 ML PEN BTL ONE (17:41)
--- NOTE | 2018-04-28 18:20 | NUR ---
patient up in bed, tolerated with dinner, dressing intact on right knee,
[2018-04-28] MEDS ORDERED: MIDAZOLAM HCL 2 MG/2 ML VIAL ONE (18:34)
[2018-04-28] MEDS ORDERED: LIDOCAINE 2% /EPINEPHRINE 20 ML SDV INJ ONE (18:34)
[2018-04-28] MEDS ORDERED: ROPIVACAINE 0.5% 5 MG/ML 30 ML SDV ONE (18:34)
[2018-04-28 20:00] VITALS: BP 141/63
--- NOTE | 2018-04-28 20:44 | NUR ---
CPM applied. Patient tolerated at 55 degrees. Dressing is dry and intact. Call light is within reach and patient denies pain. She was told to call if assistance is needed
[2018-04-28] MEDS ORDERED: ZOLPIDEM TARTRATE 5 MG TAB PO PRN (21:00)
[2018-04-29] VITALS: BP 116/58
--- NOTE | 2018-04-29 00:30 | NUR ---
PATIENT RESTING COMFORTABLE IN BED, DRESSING REMAINS DRY AND INTACT TO THE RIGHT LEG WITHOUT BLEEDING. SHE DENIES PAIN, CALL LIGHT IS WITHIN REACH.
[2018-04-29] MEDS: SODIUM CHLORIDE 0.9% 1000ML 1,000 ML IV SCH ×2 (03:41→04:52)
[2018-04-29 04:00] VITALS: BP 136/61
--- NOTE | 2018-04-29 05:22 | Consultation ---
DATE OF CONSULTATION: REASON FOR CONSULTATION: Postop medical management. HISTORY OF PRESENT ILLNESS: Patient is a 72-year-old lady who is status post right knee arthroplasty, who is doing well postoperatively with minimal pain of the right knee. REVIEW OF SYSTEMS: She denies any chest pain, fever, chills nausea, vomiting, headache, shortness of breath, or dizziness. PAST MEDICAL HISTORY: Significant for hyperlipidemia, hypertension and osteoarthritis. MEDICATIONS: See MAR. ALLERGIES: NONE. SOCIAL HISTORY: Nonsmoker and nondrinker. She is a . FAMILY HISTORY: Noncontributory. PHYSICAL EXAMINATION VITALS: 98, pulse 65, blood pressure 116/58, sats 96%. GENERAL: She is in no apparent distress lying in bed. NECK: Supple. LUNGS: Clear to auscultation bilaterally. CARDIOVASCULAR: Regular rate and rhythm. ABDOMEN: Good bowel sounds. Soft and nontender. EXTREMITIES: No clubbing or cyanosis. NEUROLOGIC: Nonfocal. ASSESSMENT AND PLAN 1. Hypertension: Will continue with her home medications at discharge. 2. Hyperlipidemia: Continue with her cholesterol medicines at discharge. 3. Knee pain: Continue with therapy. 4. Anemia: Will check a CBC. Please see hospital chart for full details. Job#: [id number] MD
[2018-04-29 05:35] LABS: HEMATOCRIT 30.9 % (34.2-44.1); HEMOGLOBIN 10.3 g/dL (12.0-16.0)
[2018-04-29] MEDS: ACETAMINOPHEN 1000 MG/100 ML IV SCH ×2 (05:42)
--- NOTE | 2018-04-29 05:42 | NUR ---
PATIENT'S RAMIREZ CATH WAS REMOVED ORDERED, ORAL FLUID ENCOURAGED.
[2018-04-29] MEDS: CEFAZOLIN SOD 1 GM/NS 50ML 50 ML IV SCH (06:04)
--- NOTE | 2018-04-29 07:30 | NUR ---
Received patient and walking rounds complete. Patient awake in CPM at this time. No signs of distress. Bed in lowest position, wheels locked, side rails up x2, call light in reach. Will continue to monitor.
[2018-04-29 07:55] VITALS: BP 160/67
[2018-04-29] MEDS: CELECOXIB 200 MG CAP PO SCH (07:59)
[2018-04-29] MEDS: ASPIRIN 325 MG TAB PO SCH (07:59)
[2018-04-29] MEDS ORDERED: ASPIRIN325 MG PO (08:54)
[2018-04-29] MEDS ORDERED: ACETAMINOPHEN 1000 MG/100 ML IV PRN (09:00)
--- NOTE | 2018-04-29 09:10 | NUR ---
CM SPOKE TO PATIENT AT BEDSIDE REGARDING ACOSTA LETTER. ACOSTA LETTER GIVEN WITH EXPLANATION. ORIGINAL SIGNED AND PLACED IN CHART; COPY OF ORIGINAL DOCUMENT GIVEN TO PATIENT AT BEDSIDE AND PLACED IN CARE TRANSITION FOLDER. CM CONTACT INFORMATION GIVEN TO PATIENT FOR ANY NEEDS OR CONCERNS. PATIENT WITH NO FURTHER QUESTIONS.
[2018-04-29 10:25] VITALS: BP 160/67
--- NOTE | 2018-04-29 11:07 | NUR ---
Patient has voided since Spangler removal.
--- NOTE | 2018-04-29 11:52 | NUR ---
PATIENT DME AND HOME HEALTH COMPANIES PRE-ARRANGED BY DR. HODGSON'S OFFICE. PATIENT WITH HOME HEALTH AND DME CONTACT INFORMATION. PATIENT AWARE TO CALL CM IF ANY PROBLEMS OCCUR WITHIN 3 DAYS POST- DISCHARGE. HOME HEALTH EXPLAINED IN DEPTH WITH SERVICES PROVIDED. PATIENT VERBALLY UNDERSTOOD. THE FOLLOWING HOME HEALTH AND DME COMPANY VERIFIED PATIENT IS ON SERVICE WITH THEM: [facility] (P) [phone] (F) [phone] [facility]LS[facility] WITH [employer] [facility] CONFIRMED PATIENT IS ON CASE LOAD AND WILL BE BEGINNING SERVICES WITH PATIENT STARTING TOMORROW. THERAPY SUPPLY HOUSE: (CPM, WALKER WITH WHEELS, COMMODE) (P) [phone] (F) [phone] PATIENT STATES EQUIPMENT IS HOME AND FAMILY WILL BE BRINGING WALKER TO BEDSIDE PRIOR TO DISCHARGE. PATIENT STATES SHE HAS 3 IN 1 COMMODE ALREADY AT HOME FROM PERVIOUS SURGERY. PATIENT AND DME COMPANY ALREADY ARRANGED FOR CPM TO BE DELIVERED TOMORROW. [facility] WITH [employer] CONFIRMED DELIVERY.
[2018-04-29 12:08] VITALS: BP 148/68
[2018-04-29] MEDS ORDERED: NORCO 7.5-3251 EACH PO (12:33)
--- NOTE | 2018-04-29 13:02 | NUR ---
Removed patients IV, catheter tip intact and pressure dressing applied.
--- NOTE | 2018-04-29 13:58 | NUR ---
Patient discharged from facility. Patient gathered all personal belongings and discharge/follow up instructions. Left unit in wheelchair and went home via private auto. No signs of distress during discharge.
== END 2018-04-29 13:58 | disposition home health service (06) ==
LOC: OR 06:24 → PACU V 08:54 → MED/SURG 12:04
PROVIDERS: ADMIT Specialist; ATTEND Specialist
DX: M17.11 Unilateral primary osteoarthritis, right knee (principal); F41.9 Anxiety disorder, unspecified; I10 Essential (primary) hypertension; Z96.652 Presence of left artificial knee joint; Z01.810 Encounter for preprocedural cardiovascular examination; Z01.812 Encounter for preprocedural laboratory examination; Z01.811 Encounter for preprocedural respiratory examination
CPT/HCPCS: 27447; 36415 ×2; 71046; 73560; 85014; 85018; 85025; 86850; 86900; 86920; 93005; 96361; 96367; 97110; 97116 ×2; 97139; 97161; 97530; C1713; G0378 ×2; J0131 ×2; J0171; J0690 ×3; J1100; J1885; J2001 ×2; J2250; J2405; J2704; J2795; J3370; J7030 ×2; J7040

== ENCOUNTER 2024-04-23 20:24 | Emergency (ER) | payer MEDICARE ==
[~2024-04-23] VITALS: Ht 154.9 cm; Wt 63.0 kg
[~2024-04-23 20:24] MED LIST changes: +NORCO 7.5-3251 EACH PO
[2024-04-23 20:53] VITALS: TEMP 98.9
[2024-04-23 21:53] LABS: ALBUMIN 3.6 g/dL (3.5-5.0); ALBUMIN/GLOBULIN RATIO 0.9 (0.8-2.0); ANION GAP 17.2 mmol/L (8-16); BILIRUBIN,TOTAL 0.5 mg/dL (0.2-1.2); CALCIUM 9.6 mg/dL (8.4-10.2); CREATININE, SERUM 1.58 mg/dL (0.57-1.11); POTASSIUM 4.2 mmol/L (3.5-5.1); TOTAL PROTEIN 7.6 g/dL (6.5-8.1)
[2024-04-23 21:56] LABS: BASOPHILS # (AUTO) 0.1 (0.0-0.1); EOSINOPHILS # (AUTO) 0.3 (0.0-0.4); EOSINOPHILS % 2.4 % (0.0-6.0); HEMATOCRIT 39.2 % (34.2-44.1); HEMOGLOBIN 12.5 g/dL (12.0-16.0); LYMPHOCYTES # (AUTO) 2.6 (1.0-3.2); LYMPHOCYTES % 25.5 % (18.0-39.1); MEAN CORPUSCULAR HEMOGLOBIN 30.9 pg (28-32); MEAN CORPUSCULAR HGB CONC 31.9 g/dL (31-35); MEAN CORPUSCULAR VOLUME 96.8 fL (81-99); MONOCYTES # (AUTO) 0.6 (0.2-0.8); NEUTROPHILS # (AUTO) 6.7 (2.1-6.9); NEUTROPHILS % 64.6 % (38.7-80.0); PLATELET COUNT 253 x10e3/uL (140-360); RED BLOOD COUNT 4.05 x10e6/uL (3.6-5.1); RED CELL DISTRIBUTION WIDTH 12.9 % (11.7-14.4); WHITE BLOOD COUNT 10.29 x10e3/uL (4.8-10.8)
[2024-04-23 22:30] VITALS: PULSE 67; RESP 17
[2024-04-23 23:57] VITALS: BP 148/63; PULSE 77; RESP 19; TEMP 98.2; O2SAT 98
== END 2024-04-23 23:58 | disposition home or self-care (01) ==
LOC: ER 22:14
DX: I10 Essential (primary) hypertension (principal); R10.13 Epigastric pain; E78.5 Hyperlipidemia, unspecified; E03.9 Hypothyroidism, unspecified; I44.7 Left bundle-branch block, unspecified; F41.9 Anxiety disorder, unspecified
CPT/HCPCS: 36415; 71045; 80053; 84484; 85025; 93005; 99284

== ENCOUNTER 2024-09-15 07:50 | Emergency (ER) | payer MEDICARE ==
[~2024-09-15] VITALS: Ht 154.9 cm; Wt 63.0 kg
[2024-09-15 07:56] VITALS: TEMP 97.5
[2024-09-15] MEDS: LIDOCAINE 1% 10 ML MULTIDOSE VIAL IJ ONE (10:29)
[2024-09-15] MEDS: DIPHTH,PERTUSS(ACELL),TET VAC 0.5 ML SYRINGE IM ONE (10:31)
[2024-09-15] MEDS: Morphine 2mg Syringe 2 MG/ML SYR IV ONE (10:39)
[2024-09-15] MEDS: METHYLPREDNISOLONE SOD SUCC 125 MG/2ML VIAL IV ONE (10:40)
[2024-09-15 11:02] LABS: BASOPHILS # (AUTO) 0.1 (0.0-0.1); BASOPHILS % 1.3 % (0.0-1.0); EOSINOPHILS # (AUTO) 0.3 (0.0-0.4); EOSINOPHILS % 3.9 % (0.0-6.0); HEMATOCRIT 36.9 % (34.2-44.1); LYMPHOCYTES # (AUTO) 1.9 (1.0-3.2); LYMPHOCYTES % 27.1 % (18.0-39.1); MEAN CORPUSCULAR HEMOGLOBIN 30.2 pg (28-32); MEAN CORPUSCULAR HGB CONC 32.5 g/dL (31-35); MEAN CORPUSCULAR VOLUME 92.9 fL (81-99); MONOCYTES # (AUTO) 0.5 (0.2-0.8); MONOCYTES % 7.6 % (4.4-11.3); NEUTROPHILS # (AUTO) 4.3 (2.1-6.9); NEUTROPHILS % 59.5 % (38.7-80.0); PLATELET COUNT 216 x10e3/uL (140-360); RED BLOOD COUNT 3.97 x10e6/uL (3.6-5.1); RED CELL DISTRIBUTION WIDTH 13.4 % (11.7-14.4); WHITE BLOOD COUNT 7.13 x10e3/uL (4.8-10.8)
[2024-09-15 11:29] LABS: ALBUMIN 3.5 g/dL (3.5-5.0); ALBUMIN/GLOBULIN RATIO 0.9 (0.8-2.0); ANION GAP 15.3 mmol/L (8-16); BILIRUBIN,TOTAL 0.5 mg/dL (0.2-1.2); CALCIUM 9.3 mg/dL (8.4-10.2); POTASSIUM 4.3 mmol/L (3.5-5.1); TOTAL PROTEIN 7.3 g/dL (6.5-8.1)
[2024-09-15 12:11] VITALS: PULSE 64; RESP 16; O2SAT 96
[2024-09-15] MEDS ORDERED: HYDROCODON-ACE1 EA12 PO (12:28)
[2024-09-15] MEDS ORDERED: CEPHALEXIN500 MG PO (12:28)
== END 2024-09-15 12:50 | disposition home or self-care (01) ==
LOC: ER 07:56
DX: S62.637B Displaced fracture of distal phalanx of left little finger, initial encounter for open fracture (principal); W26.8XXA Contact with other sharp object(s), not elsewhere classified, initial encounter; Y92.89 Other specified places as the place of occurrence of the external cause; I10 Essential (primary) hypertension; E03.9 Hypothyroidism, unspecified; F41.9 Anxiety disorder, unspecified
CPT/HCPCS: 12001; 29130; 36415; 73130; 80053; 85025; 99284; J0690; J2270; J2919; J7050